=== PATIENT | female | born 1935 | race Hispanic/Latino ===

== ENCOUNTER → 2018-02-15 | Outpatient (CLI) | payer MEDICARE ==
[~2018-02-15] MED LIST: IOPAMIDOL 370 MG/ML 200 ML INFUS..BTL INJ ONE; SODIUM CHLORIDE 0.9% 50ML 50 ML ONE
[2018-02-15 10:32] LABS: BLOOD UREA NITROGEN 21 mg/dL (7-26); BUN/CREATININE RATIO 27 (6-25); CREATININE, SERUM 0.78 mg/dL (0.57-1.11); EST GLOMERULAR FILTRATION RATE > 60 ML/MIN (60-)
--- NOTE | 2018-02-15 12:07 | Diagnostic Imaging Report ---
PROCEDURE:CT ABDOMEN W COMPARISON:None. INDICATIONS:UMBILICAL HERNIA TECHNIQUE: Routine protocol Volumetric CT abdomen after administration of 100 mL Isovue-370 intravenous contrast and 900 mm water enteric multiplanar reformatted images. DLP: 470.48 FINDINGS: Clear lung bases. No pleural effusions. Normal heart size. Mild right coronary calcification. Mild mitral annulus calcification. Liver: Diffuse low-attenuation. Midclavicular craniocaudal span 13 cm. Normal gallbladder. Pancreas: Normal Spleen: Normal size. Calcified granuloma. Adrenal glands: Normal Kidneys: Mild bilateral cortical thinning suggesting chronic medical renal disease. 4.4 cm cyst of the right inferior pole (averaging 11 Hounsfield units). Bowel: Image segments are normal caliber. Peritoneum: Normal Vasculature: Moderate diffuse arteriosclerosis. Moderate calcification at the origins of the renal arteries. Lymph nodes: Normal Skeleton: Intact. 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 Soft tissues: Diastases recti with associated 1.7 x 2.4 cm supraumbilical hernia containing mesenteric fat fat/omentum. Inferior to this, is a associated 5 x 3 cm hernia containing normal caliber loops of small bowel, mesenteric fat and omentum. CONCLUSION: 1. Complex supraumbilical hernia. There are at least 2 focal supraumbilical hernias associated with diastases recti. These contain mesenteric fat and omentum, as well as non-obstructed loops of small bowel. 2. Hepatic steatosis Dictated by: Neri Troy M.D. on 02/15/2018 at 12:10 Electronically approved by: Neri Troy M.D. on 02/15/2018 at 12:10
== END ==
LOC: CT 09:41
PROVIDERS: ATTEND Family Medicine
DX: K42.9 Umbilical hernia without obstruction or gangrene (principal)
CPT/HCPCS: 36415; 74160; 82565; 84520; Q9967